=== PATIENT | female | born 1955 | race Caucasian/White ===

== ENCOUNTER 2016-06-12 15:24 | Emergency (ER) | payer MEDICAID ==
[~2016-06-12] VITALS: Ht 152.4 cm; Wt 87.0 kg
[~2016-06-12 15:24] MED LIST: ASPI-1035 PO; DEX4 PO; IOHEXOL-300 100 ML BOTTLE ONE; LEVVL SUBCUT; LIP40 PO; LISI10TA5 PO; METF500T; PHEN100C4 PO; SODIUM CHLORIDE 0.9% 10ML VIAL ONE
[2016-06-12] MEDS ORDERED: MORPHINE SULFATE 4 MG/ML CPJ (NOT FOR IM USE) IV STA (15:55)
[2016-06-12] MEDS ORDERED: ONDANSETRON HCL 4MG/2ML VIAL IV STA (15:55)
[2016-06-12 16:20] LABS: BASOPHILS % 0.1 % (0.0-2.0); HEMATOCRIT. 40.1 % (36.0-48.0); HEMOGLOBIN. 13.5 g/dL (12.0-16.0); LYMPHOCYTES % 15.3 % (20.0-50.0); MEAN CORPUSCULAR HEMOGLOBIN 30.7 pg (28.0-32.0); MEAN CORPUSCULAR HGB CONC 33.8 g/dL (31.0-37.0); MEAN CORPUSCULAR VOLUME 90.7 fL (81.0-99.0); MEAN PLATELET VOLUME 8.5 fl (7.4-10.4); MONOCYTES % 5.2 % (2.0-8.0); NEUTROPHILS % 79.4 % (40.0-76.0); PLATELET 228 x1000/uL (130-400); RED BLOOD CELL COUNT 4.42 mill/uL (4.2-5.4); RED CELL DISTRIBUTION WIDTH 13.3 % (11.6-14.6); WHITE BLOOD COUNT 11.9 x1000/uL (4.5-11.0)
[2016-06-12 16:30] LABS: ALANINE AMINOTRANSFERASE 66 IU/L (13-61); ALBUMIN 3.1 g/dL (3.4-5.0); ANION GAP 20; CALCIUM 8.3 mg/dL (8.5-10.1); CARBON DIOXIDE 23 mEq/L (21-32); CHLORIDE 98 mEq/L (98-107); INDEX HEMOLYSI 2 (1-3); INDEX ICTERIC 1 (1-4); INDEX LIPEMIC 1 (1-3); NT PRO B-TYPE NATRIURETIC PEP 265 pg/mL (5-125); TROPONIN I < 0.02 ng/mL (0.00-0.04); UREA NITROGEN BLOOD 25 mg/dL (7-21); eGFR > 60 mL/min (>60)
[2016-06-12 16:30] LABS: CLARITY URINE CLEAR (CLEAR); COLOR URINE YELLOW (YELLOW); GLUCOSE URINE 3+ (NEGATIVE); KETONES URINE TRACE (NEGATIVE); LEUKOCYTE ESTERASE URINE NEGATIVE (NEGATIVE); NITRITE URINE NEGATIVE (NEGATIVE); OCCULT BLOOD URINE NEGATIVE (NEGATIVE); PROTEIN URINE NEGATIVE (NEGATIVE); SPECIFIC GRAVITY URINE 1.031 (1.005-1.030)
[2016-06-12] MEDS ORDERED: INSULIN REGULAR (HUMULIN R) 300UNITS/3ML IV ONE (16:45)
[2016-06-12 17:06] LABS: BACTERIA URINE 1+; RBC URINE NONE SEEN /hpf (0-2); SQUAMOUS EPITHELIAL CELL URINE FEW /lpf (RARE/1+); WBC URINE 0-2 /hpf (0-2)
[2016-06-12] MEDS ORDERED: POLYETHYLENE GLYCOL 3350 (17GM) 1 DOSE PACK PO ONE (18:30)
[2016-06-12] MEDS ORDERED: INSULIN REGULAR (HUMULIN R) 300UNITS/3ML IV NR (21:26)
[2016-06-12 22:23] VITALS: BP 146/63
== END 2016-06-12 22:26 | disposition home or self-care (01) ==
LOC: ER 15:24
DX: R10.11 Right upper quadrant pain (principal); R06.02 Shortness of breath; M79.89 Other specified soft tissue disorders; E11.65 Type 2 diabetes mellitus with hyperglycemia; I10 Essential (primary) hypertension; Z90.49 Acquired absence of other specified parts of digestive tract; Z79.4 Long term (current) use of insulin; Z79.82 Long term (current) use of aspirin; Z98.890 Other specified postprocedural states
CPT/HCPCS: 36415; 71010; 74177; 80053; 81001; 82962; 83690; 83880; 84484; 85025; 85379; 85610; 93005; 96374; 96375; 99285; A4216; J1815; J2270; J2405; Q9967; Z7610

== ENCOUNTER 2016-08-16 14:43 | Inpatient (IN) | payer MEDICAID ==
[~2016-08-16] VITALS: Ht 180.3 cm; Wt 95.3 kg
[~2016-08-16 14:43] MED LIST changes: -ASPI-1035 PO; +ASPI-1159 PO; -IOHEXOL-300 100 ML BOTTLE ONE; -SODIUM CHLORIDE 0.9% 10ML VIAL ONE
[2016-08-16 18:11] LABS: BASOPHILS % 1.2 % (0.0-2.0); HEMATOCRIT. 40.5 % (36.0-48.0); HEMOGLOBIN. 14.1 g/dL (12.0-16.0); LYMPHOCYTES % 34.1 % (20.0-50.0); MEAN CORPUSCULAR HEMOGLOBIN 30.8 pg (28.0-32.0); MEAN CORPUSCULAR VOLUME 88.3 fL (81.0-99.0); MEAN PLATELET VOLUME 8.2 fl (7.4-10.4); MONOCYTES % 4.7 % (2.0-8.0); PLATELET 310 x1000/uL (130-400); RED BLOOD CELL COUNT 4.59 mill/uL (4.2-5.4); RED CELL DISTRIBUTION WIDTH 13.2 % (11.6-14.6)
[2016-08-16 18:26] LABS: CARBON DIOXIDE 27 mEq/L (21-32); CHLORIDE 100 mEq/L (98-107)
[2016-08-16] MEDS ORDERED: ONDANSETRON HCL 4MG/2ML VIAL IV ONE (18:30)
[2016-08-16] MEDS ORDERED: MORPHINE SULFATE 2 MG/ML CPJ (NOT FOR IM USE) IV ONE (20:15)
[2016-08-16] MEDS ORDERED: SODIUM CHLORIDE 0.9% 1,000 ML IV ONE (21:15)
[2016-08-17] VITALS (7 sets, daily range): BP systolic 122–161; BP diastolic 63–83
[2016-08-17] MEDS ORDERED: HYDROCODONE/ACETAMINOPHEN 5/325MG TABLET PO PRN (00:45)
[2016-08-17] MEDS ORDERED: IPRATROPIUM/ALBUTEROL 0.5-3(2.5)MG/3ML NEB INH PRN (00:45)
[2016-08-17] MEDS ORDERED: ACETAMINOPHEN 325MG TABLET PO PRN (00:45)
[2016-08-17] MEDS ORDERED: ONDANSETRON HCL 4MG/2ML VIAL IV PRN (00:45)
[2016-08-17] MEDS ORDERED: MAGNESIUM/ALUMINUM HYDROXIDE/SIMETHICONE 30ML UDC PO PRN (00:45)
[2016-08-17] MEDS ORDERED: DOCUSATE SODIUM 100MG CAPSULE PO PRN ×2 (00:45→09:00)
[2016-08-17] MEDS ORDERED: CLONIDINE 0.1MG TABLET PO PRN (00:45)
[2016-08-17 03:20] LABS: CLARITY URINE CLEAR (CLEAR); COLOR URINE YELLOW (YELLOW); GLUCOSE URINE 3+ (NEGATIVE); KETONES URINE TRACE (NEGATIVE); LEUKOCYTE ESTERASE URINE NEGATIVE (NEGATIVE); NITRITE URINE POSITIVE (NEGATIVE); OCCULT BLOOD URINE NEGATIVE (NEGATIVE); PROTEIN URINE NEGATIVE (NEGATIVE); SPECIFIC GRAVITY URINE 1.033 (1.005-1.030); UROBILINOGEN URINE 0.2 E.U./dL (0.2-1.0)
[2016-08-17 03:33] LABS: *AMPHETAMINES SCREEN URINE NEGATIVE (NEGATIVE); *BARBITURATES SCREEN URINE NEGATIVE (NEGATIVE); *BENZODIAZEPINES SCREEN URINE NEGATIVE (NEGATIVE); *COCAINE SCREEN URINE NEGATIVE (NEGATIVE); CANNABINOID URINE SCREEN NEGATIVE (NEGATIVE); METHADONE URINE SCREEN NEGATIVE (NEGATIVE); OPIATES URINE SCREEN PRESUMTIVE POSITIVE (NEGATIVE); PHENCYCLIDINE URINE SCREEN NEGATIVE (NEGATIVE)
[2016-08-17] MEDS ORDERED: DEXTROSE 50% WATER 50ML SYRINGE IV PRN (04:45)
[2016-08-17] MEDS ORDERED: BENA20TA3 PO (04:52)
[2016-08-17] MEDS ORDERED: OMEP20CA10 PO (04:52)
[2016-08-17] MEDS ORDERED: DOCU-138 PO (04:54)
[2016-08-17] MEDS ORDERED: BENA5TAB3 PO (05:18)
[2016-08-17] MEDS ORDERED: MULT1TAB63 PO (06:03)
[2016-08-17] MEDS ORDERED: LEVVL SQ (06:03)
[2016-08-17] MEDS: BLOOD SUGAR DIAGNOSTIC STRIP TEST SCH ×4 (06:22→20:24)
[2016-08-17] MEDS: OMEPRAZOLE 20MG CAPSULE EXTENDED RELEASE PO SCH (06:28)
[2016-08-17 07:54] LABS: CHLORIDE 104 mEq/L (98-107)
[2016-08-17] MEDS ORDERED: MAGNESIUM 2 G PREMIX 50 ML IV NR (08:00)
[2016-08-17 08:13] LABS: CARBON DIOXIDE 25 mEq/L (21-32); CREATINE KINASE 49 IU/L (26-192); CREATINE KINASE MB FRACTION < 0.5 ng/mL (0.5-3.6); TROPONIN I < 0.02 ng/mL (0.00-0.04)
[2016-08-17] MEDS: METFORMIN HCL 500MG TABLET PO SCH ×2 (09:07→17:53)
[2016-08-17] MEDS: BENAZEPRIL 5MG TABLET PO SCH ×2 (09:08→20:24)
[2016-08-17] MEDS: ASPIRIN 81MG EC TABLET PO SCH (09:08)
[2016-08-17] MEDS: INSULIN LISPRO 100 UNITS/ML SUBCUT SCH ×5 (09:12→20:36)
[2016-08-17] MEDS: INSULIN DETEMIR UD 100 UNITS/ML SYR SUBCUT SCH ×2 (10:36→22:23)
[2016-08-17 16:02] LABS: CREATINE KINASE 48 IU/L (26-192); CREATINE KINASE MB FRACTION 0.6 ng/mL (0.5-3.6); TROPONIN I < 0.02 ng/mL (0.00-0.04)
[2016-08-17] MEDS ORDERED: MECLIZINE 25MG TABLET PO NR (18:51)
[2016-08-17] MEDS: ATORVASTATIN CALCIUM 40MG TABLET PO SCH (20:23)
[2016-08-17] MEDS: LEVOFLOXACIN 500MG PREMIX 100 ML IV SCH (20:24)
[2016-08-18] VITALS: BP 129/72
[2016-08-18 03:24] VITALS: BP 141/76
[2016-08-18] MEDS: OMEPRAZOLE 20MG CAPSULE EXTENDED RELEASE PO SCH (06:20)
[2016-08-18] MEDS: BLOOD SUGAR DIAGNOSTIC STRIP TEST SCH ×4 (06:20→20:45)
[2016-08-18 06:25] LABS: BASOPHILS % 0.5 % (0.0-2.0); EOSINOPHILS % 2.6 % (0.0-5.0); HEMATOCRIT. 37.1 % (36.0-48.0); HEMOGLOBIN. 12.9 g/dL (12.0-16.0); LYMPHOCYTES % 39.9 % (20.0-50.0); MEAN CORPUSCULAR HEMOGLOBIN 30.9 pg (28.0-32.0); MEAN PLATELET VOLUME 8.6 fl (7.4-10.4); MONOCYTES % 6.5 % (2.0-8.0); NEUTROPHILS % 50.5 % (40.0-76.0); PLATELET 275 x1000/uL (130-400); RED BLOOD CELL COUNT 4.18 mill/uL (4.2-5.4); RED CELL DISTRIBUTION WIDTH 12.9 % (11.6-14.6)
[2016-08-18 07:17] LABS: CARBON DIOXIDE 24 mEq/L (21-32); CHLORIDE 102 mEq/L (98-107)
[2016-08-18] MEDS: METFORMIN HCL 500MG TABLET PO SCH ×2 (08:07→18:11)
[2016-08-18] MEDS: ASPIRIN 81MG EC TABLET PO SCH (08:08)
[2016-08-18] MEDS: BENAZEPRIL 5MG TABLET PO SCH ×2 (08:08→20:42)
[2016-08-18] MEDS: INSULIN LISPRO 100 UNITS/ML SUBCUT SCH ×4 (08:09→20:43)
[2016-08-18 08:28] VITALS: BP 129/84
[2016-08-18] MEDS: INSULIN DETEMIR UD 100 UNITS/ML SYR SUBCUT SCH ×2 (10:02→21:12)
[2016-08-18 12:00] VITALS: BP_SYST 113; BP_SYST 133; BP_SYST 139; BP_DIAS 65; BP_DIAS 75; BP_DIAS 78
[2016-08-18 17:42] VITALS: BP 129/72
[2016-08-18 20:26] VITALS: BP_SYST 127; BP_SYST 128; BP_SYST 130; BP_DIAS 65; BP_DIAS 69; BP_DIAS 70
[2016-08-18] MEDS: ATORVASTATIN CALCIUM 40MG TABLET PO SCH (20:42)
[2016-08-18] MEDS: LEVOFLOXACIN 500MG PREMIX 100 ML IV SCH (20:43)
[2016-08-19] VITALS: BP 130/81
[2016-08-19 04:00] VITALS: BP 136/63
[2016-08-19] MEDS: OMEPRAZOLE 20MG CAPSULE EXTENDED RELEASE PO SCH (06:13)
[2016-08-19] MEDS: BLOOD SUGAR DIAGNOSTIC STRIP TEST SCH ×2 (06:20→12:47)
[2016-08-19 08:12] VITALS: BP 166/89
[2016-08-19] MEDS: METFORMIN HCL 500MG TABLET PO SCH (08:38)
[2016-08-19] MEDS: ASPIRIN 81MG EC TABLET PO SCH (08:38)
[2016-08-19] MEDS: BENAZEPRIL 5MG TABLET PO SCH (08:38)
[2016-08-19] MEDS: INSULIN LISPRO 100 UNITS/ML SUBCUT SCH (08:42)
[2016-08-19] MEDS: INSULIN DETEMIR UD 100 UNITS/ML SYR SUBCUT SCH (10:17)
[2016-08-19] MEDS ORDERED: INSULIN LISPRO 100 UNITS/ML SUBCUT SCH (12:50)
[2016-08-19 13:58] VITALS: BP 142/77
== END 2016-08-19 15:30 | disposition home health service (06) | DRG 44 ==
LOC: ER 19:24 → 6WST 21:47 → ENRESERV 08-17 02:38
PROVIDERS: ADMIT Internal Medicine; ATTEND Internal Medicine
DX: I60.9 Nontraumatic subarachnoid hemorrhage, unspecified (principal); E86.0 Dehydration; E11.65 Type 2 diabetes mellitus with hyperglycemia; H81.10 Benign paroxysmal vertigo, unspecified ear; I10 Essential (primary) hypertension; N39.0 Urinary tract infection, site not specified; D64.9 Anemia, unspecified; E78.5 Hyperlipidemia, unspecified; E66.01 Morbid (severe) obesity due to excess calories; Z79.4 Long term (current) use of insulin; Z79.84 Long term (current) use of oral hypoglycemic drugs; Z79.899 Other long term (current) drug therapy; Z98.890 Other specified postprocedural states; Z86.011 Personal history of benign neoplasm of the brain; Z79.82 Long term (current) use of aspirin; Z90.49 Acquired absence of other specified parts of digestive tract; Z98.891 History of uterine scar from previous surgery; Z68.29 Body mass index [BMI] 29.0-29.9, adult
CPT/HCPCS: 36415; 70450; 70551; 71010; 76770; 80048; 80053; 80305; 81001; 82550; 82553; 82962; 83735; 84484; 85025; 85610; 93005; 93970; 96361; 96374; 96375; 97163; 97166; 97535; 99285; C1893; J1815; J1956; J2270; J2405; J3475; J7030; J7040; J7620; J8597

== ENCOUNTER 2016-12-03 17:22 | Inpatient (IN) | payer MEDICAID ==
[~2016-12-03] VITALS: Ht 149.9 cm; Wt 90.7 kg
[~2016-12-03 17:22] MED LIST changes: +BENA5TAB3 PO; -DEX4 PO; +DOCU-138 PO; +LEVVL SQ; -LISI10TA5 PO; -METF500T; +METF500T PO; +MULT1TAB63 PO; +OMEP20CA10 PO; -PHEN100C4 PO
[2016-12-03] MEDS ORDERED: ONDANSETRON HCL 4MG/2ML VIAL IV STA (18:16)
[2016-12-03] MEDS ORDERED: MORPHINE SULFATE 10 MG/ML CPJ IV ONE ×2 (18:30→20:30)
[2016-12-03] MEDS ORDERED: KETOROLAC 15MG/ML VIAL IV ONE (18:30)
[2016-12-03 18:57] LABS: CLARITY URINE CLEAR (CLEAR); COLOR URINE YELLOW (YELLOW); GLUCOSE URINE 3+ (NEGATIVE); KETONES URINE NEGATIVE (NEGATIVE); LEUKOCYTE ESTERASE URINE NEGATIVE (NEGATIVE); NITRITE URINE POSITIVE (NEGATIVE); OCCULT BLOOD URINE NEGATIVE (NEGATIVE); PH URINE 6.5 (4.5-8.0); PROTEIN URINE NEGATIVE (NEGATIVE); SPECIFIC GRAVITY URINE 1.028 (1.005-1.030); UROBILINOGEN URINE 0.2 E.U./dL (0.2-1.0)
[2016-12-03 19:25] LABS: D-DIMER 0.36 mg/L FEU (<0.50); PARTIAL THROMBOPLASTIN TIME 25.7 sec (23.4-31.0); PROTHROMBIN TIME 10.3 sec (9.4-11.6)
[2016-12-03 19:27] LABS: BASOPHILS % 0.5 % (0.0-2.0); EOSINOPHILS % 2.6 % (0.0-5.0); HEMATOCRIT. 40.2 % (36.0-48.0); HEMOGLOBIN. 13.7 g/dL (12.0-16.0); LYMPHOCYTES % 35.1 % (20.0-50.0); MEAN CORPUSCULAR HEMOGLOBIN 29.5 pg (28.0-32.0); MEAN CORPUSCULAR VOLUME 86.7 fL (81.0-99.0); MEAN PLATELET VOLUME 9.1 fl (7.4-10.4); MONOCYTES % 5.9 % (2.0-8.0); NEUTROPHILS % 55.9 % (40.0-76.0); PLATELET 259 x1000/uL (130-400); RED BLOOD CELL COUNT 4.63 mill/uL (4.2-5.4); RED CELL DISTRIBUTION WIDTH 13.2 % (11.6-14.6)
[2016-12-03 19:30] LABS: CARBON DIOXIDE 28 mEq/L (21-32); CHLORIDE 101 mEq/L (98-107); TROPONIN I < 0.02 ng/mL (0.00-0.04)
[2016-12-03] MEDS ORDERED: CEFTRIAXONE 1 G PREMIX 50 ML IV ONE (20:00)
[2016-12-03] MEDS ORDERED: ASPIRIN 325MG EC TABLET PO ONE (20:15)
[2016-12-03] MEDS ORDERED: ONDANSETRON HCL 4MG/2ML VIAL IV ONE (20:30)
[2016-12-03] MEDS ORDERED: INSULIN REGULAR (HUMULIN R) 300UNITS/3ML SUBCUT ONE (23:15)
[2016-12-04] VITALS: BP 149/52
[2016-12-04] MEDS ORDERED: GLYB5TAB7 PO (01:21)
[2016-12-04] MEDS ORDERED: LISI10TA5 PO (01:21)
[2016-12-04 04:00] VITALS: BP 167/83
[2016-12-04] MEDS ORDERED: HYDROCODONE/ACETAMINOPHEN 5/325MG TABLET PO PRN (04:30)
[2016-12-04] MEDS ORDERED: DEXTROSE 50% WATER 50ML SYRINGE IV PRN ×2 (04:30→10:45)
[2016-12-04] MEDS: BLOOD SUGAR DIAGNOSTIC STRIP TEST SCH ×4 (06:48→20:51)
[2016-12-04] MEDS ORDERED: INSULIN LISPRO 100 UNITS/ML SUBCUT SCH (07:15)
[2016-12-04 08:00] VITALS: BP 152/69
[2016-12-04 08:27] LABS: BASOPHILS % 0.5 % (0.0-2.0); EOSINOPHILS % 2.3 % (0.0-5.0); HEMATOCRIT. 39.4 % (36.0-48.0); HEMOGLOBIN. 13.5 g/dL (12.0-16.0); LYMPHOCYTES % 35.6 % (20.0-50.0); MEAN CORPUSCULAR HEMOGLOBIN 29.5 pg (28.0-32.0); MEAN PLATELET VOLUME 8.8 fl (7.4-10.4); MONOCYTES % 6.1 % (2.0-8.0); NEUTROPHILS % 55.5 % (40.0-76.0); PLATELET 247 x1000/uL (130-400); RED BLOOD CELL COUNT 4.58 mill/uL (4.2-5.4); RED CELL DISTRIBUTION WIDTH 13.1 % (11.6-14.6)
[2016-12-04 09:10] LABS: CARBON DIOXIDE 28 mEq/L (21-32); CHLORIDE 102 mEq/L (98-107); CREATINE KINASE 68 IU/L (26-192)
[2016-12-04 09:13] LABS: CREATINE KINASE MB FRACTION 0.6 ng/mL (0.5-3.6); TROPONIN I < 0.02 ng/mL (0.00-0.04)
[2016-12-04] MEDS ORDERED: KETOROLAC 15MG/ML VIAL IV PRN (10:30)
[2016-12-04] MEDS ORDERED: PNEUMOCOCCAL 23-VAL P-SAC VAC 0.5 ML IM ONE (11:00)
[2016-12-04] MEDS ORDERED: BLOOD SUGAR DIAGNOSTIC STRIP TEST SCH (11:45)
[2016-12-04 12:00] VITALS: BP 128/53
[2016-12-04] MEDS: INSULIN LISPRO 100 UNITS/ML SUBCUT SCH ×3 (12:28→21:01)
[2016-12-04] MEDS ORDERED: DOCUSATE SODIUM 100MG CAPSULE PO PRN (13:00)
[2016-12-04] MEDS ORDERED: KETOROLAC 10MG TABLET PO SCH (13:30)
[2016-12-04] MEDS: BISACODYL 5MG TABLET PO PRN (14:56)
[2016-12-04] MEDS: LIDOCAINE 5% PATCH TOP SCH (14:58)
[2016-12-04 16:00] VITALS: BP 126/61
[2016-12-04 16:41] LABS: CREATINE KINASE 69 IU/L (26-192); CREATINE KINASE MB FRACTION 1.1 ng/mL (0.5-3.6); TROPONIN I < 0.02 ng/mL (0.00-0.04)
[2016-12-04] MEDS: GLYBURIDE 5MG TABLET PO SCH (17:01)
[2016-12-04 20:00] VITALS: BP 138/62
[2016-12-04] MEDS ORDERED: CEFTRIAXONE 1 G PREMIX 50 ML IV SCH (20:00)
[2016-12-04] MEDS: LISINOPRIL 10MG TABLET PO SCH (20:49)
[2016-12-04] MEDS ORDERED: ATORVASTATIN CALCIUM 40MG TABLET PO SCH (21:00)
[2016-12-04] MEDS ORDERED: BENAZEPRIL 5MG TABLET PO SCH (21:00)
[2016-12-04] MEDS ORDERED: KETOROLAC 10MG TABLET PO PRN (21:00)
[2016-12-04] MEDS ORDERED: INSULIN DETEMIR UD 100 UNITS/ML SYR SUBCUT PRN (21:00)
[2016-12-04] MEDS: INSULIN DETEMIR UD 100 UNITS/ML SYR SUBCUT SCH (21:01)
[2016-12-05] VITALS: BP 134/64
[2016-12-05 04:00] VITALS: BP 146/86
[2016-12-05 06:14] LABS: CHLORIDE 101 mEq/L (98-107)
[2016-12-05] MEDS: BISACODYL 5MG TABLET PO PRN (06:22)
[2016-12-05] MEDS: BLOOD SUGAR DIAGNOSTIC STRIP TEST SCH ×2 (06:24→12:03)
[2016-12-05 06:37] LABS: BASOPHILS % 1.2 % (0.0-2.0); EOSINOPHILS % 3.9 % (0.0-5.0); HEMOGLOBIN. 13.4 g/dL (12.0-16.0); LYMPHOCYTES % 34.3 % (20.0-50.0); MEAN CORPUSCULAR HEMOGLOBIN 30.1 pg (28.0-32.0); NEUTROPHILS % 54.6 % (40.0-76.0); PLATELET 234 x1000/uL (130-400); RED BLOOD CELL COUNT 4.44 mill/uL (4.2-5.4)
[2016-12-05 06:39] LABS: CARBON DIOXIDE 22 mEq/L (21-32); TROPONIN I < 0.02 ng/mL (0.00-0.04)
[2016-12-05] MEDS: INSULIN LISPRO 100 UNITS/ML SUBCUT SCH ×2 (06:41→12:28)
[2016-12-05 08:00] VITALS: BP 141/62
[2016-12-05] MEDS: GLYBURIDE 5MG TABLET PO SCH (08:35)
[2016-12-05] MEDS: LISINOPRIL 10MG TABLET PO SCH (08:36)
[2016-12-05] MEDS: LIDOCAINE 5% PATCH TOP SCH (08:39)
[2016-12-05] MEDS ORDERED: OMEPRAZOLE 20MG CAPSULE EXTENDED RELEASE PO SCH (09:00)
[2016-12-05] MEDS ORDERED: MULTIVITAMINS,THER W-MINERALS TABLET PO SCH (09:00)
[2016-12-05] MEDS ORDERED: ASPIRIN 81MG EC TABLET PO SCH (09:00)
[2016-12-05] MEDS: INSULIN DETEMIR UD 100 UNITS/ML SYR SUBCUT SCH (10:34)
[2016-12-05 12:00] VITALS: BP 144/60
[2016-12-05 16:00] VITALS: BP 128/55
[2016-12-05 16:30] VITALS: BP 128/65
== END 2016-12-05 17:10 | disposition home or self-care (01) | DRG 203 ==
LOC: ER 17:28 → 5WST 20:15 → EDBEDREQTM 20:19 → EDBEDREQ 20:19 → ENRESERV 21:22
PROVIDERS: ADMIT Internal Medicine; ATTEND Internal Medicine
DX: M94.0 Chondrocostal junction syndrome [Tietze] (principal); I11.0 Hypertensive heart disease with heart failure; I50.9 Heart failure, unspecified; E11.65 Type 2 diabetes mellitus with hyperglycemia; I10 Essential (primary) hypertension; E04.1 Nontoxic single thyroid nodule; E78.00 Pure hypercholesterolemia, unspecified; E78.5 Hyperlipidemia, unspecified; H91.90 Unspecified hearing loss, unspecified ear; S43.402A Unspecified sprain of left shoulder joint, initial encounter; W06.XXXA Fall from bed, initial encounter; Z79.899 Other long term (current) drug therapy; Z79.4 Long term (current) use of insulin; Z86.011 Personal history of benign neoplasm of the brain; Z90.49 Acquired absence of other specified parts of digestive tract; Y93.89 Activity, other specified; Y92.89 Other specified places as the place of occurrence of the external cause; Y99.8 Other external cause status
CPT/HCPCS: 36415; 71010; 71250; 80048; 80053; 80061; 81001; 82550; 82553; 82962; 83036; 83690; 83880; 84443; 84484; 85025; 85379; 85610; 85730; 90732; 93005; 96365; 96372; 96375; 96376; 99285; J0696; J1815; J1885; J2270; J2405; J7050

== ENCOUNTER 2017-06-29 05:33 | Inpatient (IN) | payer MEDICAID ==
[~2017-06-29] VITALS: Ht 144.8 cm; Wt 90.7 kg
[~2017-06-29 05:33] MED LIST changes: +GLYB5TAB7 PO; +LISI10TA5 PO
[2017-06-29] MEDS ORDERED: ONDANSETRON HCL 4MG/2ML VIAL IV STA (07:58)
[2017-06-29] MEDS ORDERED: MORPHINE SULFATE 4 MG/ML CPJ (NOT FOR IM USE) IV STA (07:58)
[2017-06-29] MEDS ORDERED: SODIUM CHLORIDE 0.9% 1,000 ML IV ONE (07:58)
[2017-06-29 08:32] LABS: BASOPHILS % 0.3 % (0.0-2.0); EOSINOPHILS % 0.5 % (0.0-5.0); HEMATOCRIT. 39.9 % (36.0-48.0); HEMOGLOBIN. 13.9 g/dL (12.0-16.0); LYMPHOCYTES % 13.3 % (20.0-50.0); MEAN CORPUSCULAR HEMOGLOBIN 30.4 pg (28.0-32.0); MEAN CORPUSCULAR VOLUME 87.2 fL (81.0-99.0); MEAN PLATELET VOLUME 8.4 fl (7.4-10.4); MONOCYTES % 4.6 % (2.0-8.0); NEUTROPHILS % 81.3 % (40.0-76.0); PLATELET 254 x1000/uL (130-400); RED BLOOD CELL COUNT 4.58 mill/uL (4.2-5.4); RED CELL DISTRIBUTION WIDTH 12.3 % (11.6-14.6)
[2017-06-29 08:33] LABS: CHLORIDE 97 mEq/L (98-107); PROTHROMBIN TIME 10.7 sec (9.4-11.6)
[2017-06-29 09:39] LABS: CLARITY URINE CLEAR (CLEAR); COLOR URINE YELLOW (YELLOW); KETONES URINE 1+ (NEGATIVE); LEUKOCYTE ESTERASE URINE NEGATIVE (NEGATIVE); NITRITE URINE POSITIVE (NEGATIVE); OCCULT BLOOD URINE NEGATIVE (NEGATIVE); PH URINE 5.5 (4.5-8.0); PROTEIN URINE TRACE (NEGATIVE); UROBILINOGEN URINE 0.2 E.U./dL (0.2-1.0)
[2017-06-29] MEDS ORDERED: METRONIDAZOLE 500 MG PREMIX 100 ML IV ONE (12:15)
[2017-06-29] MEDS ORDERED: PIPERACILLIN/TAZ 3.375G PREMIX 50 ML IV ONE (12:15)
[2017-06-29] MEDS ORDERED: DEXTROSE 50% WATER 50ML SYRINGE IV PRN (12:30)
[2017-06-29] MEDS ORDERED: CLONIDINE 0.1MG TABLET PO PRN (12:30)
[2017-06-29] MEDS ORDERED: MORPHINE SULFATE 2 MG/ML CPJ (NOT FOR IM USE) IV PRN (12:30)
[2017-06-29] MEDS ORDERED: ONDANSETRON HCL 4MG/2ML VIAL IV PRN (12:30)
[2017-06-29 16:40] VITALS: BP 152/71
[2017-06-29] MEDS: BLOOD SUGAR DIAGNOSTIC STRIP TEST SCH ×2 (17:18→23:13)
[2017-06-29] MEDS ORDERED: MORPHINE SULFATE 4 MG/ML CPJ (NOT FOR IM USE) IV PRN (17:25)
[2017-06-29] MEDS: METRONIDAZOLE 500MG TABLET PO SCH ×2 (17:33→22:55)
[2017-06-29] MEDS: OMEPRAZOLE 20MG CAPSULE EXTENDED RELEASE PO SCH (17:33)
[2017-06-29] MEDS: ASPIRIN 81MG EC TABLET PO SCH (17:33)
[2017-06-29] MEDS: LISINOPRIL 10MG TABLET PO SCH ×2 (17:33→22:56)
[2017-06-29] MEDS: INSULIN LISPRO 100 UNITS/ML SUBCUT SCH ×2 (17:44→23:53)
[2017-06-29] MEDS: LEVOFLOXACIN 500MG PREMIX 100 ML IV SCH (17:45)
[2017-06-29 20:00] VITALS: BP 128/66
[2017-06-29] MEDS ORDERED: INSULIN GLARGINE UD 100 UNITS/ML SYR SUBCUT SCH (22:00)
[2017-06-29] MEDS: BENAZEPRIL 5MG TABLET PO SCH (22:55)
[2017-06-29] MEDS: ATORVASTATIN CALCIUM 40MG TABLET PO SCH (22:55)
[2017-06-29] MEDS: INSULIN GLARGINE UD 100 UNITS/ML SYR SUBCUT SCH (23:54)
[2017-06-30] VITALS: BP 124/68
[2017-06-30 04:00] VITALS: BP 122/66
[2017-06-30] MEDS: BLOOD SUGAR DIAGNOSTIC STRIP TEST SCH ×4 (06:26→20:55)
[2017-06-30] MEDS: METRONIDAZOLE 500MG TABLET PO SCH ×3 (06:28→21:12)
[2017-06-30 07:01] LABS: BASOPHILS % 0.2 % (0.0-2.0); EOSINOPHILS % 1.4 % (0.0-5.0); HEMATOCRIT. 37.5 % (36.0-48.0); LYMPHOCYTES % 22.2 % (20.0-50.0); MEAN CORPUSCULAR HEMOGLOBIN 30.4 pg (28.0-32.0); MEAN CORPUSCULAR VOLUME 87.9 fL (81.0-99.0); MEAN PLATELET VOLUME 8.6 fl (7.4-10.4); MONOCYTES % 8.2 % (2.0-8.0); PLATELET 227 x1000/uL (130-400); RED BLOOD CELL COUNT 4.26 mill/uL (4.2-5.4); RED CELL DISTRIBUTION WIDTH 12.2 % (11.6-14.6)
[2017-06-30 08:00] VITALS: BP 122/66
[2017-06-30] MEDS: ASPIRIN 81MG EC TABLET PO SCH (08:45)
[2017-06-30] MEDS: BENAZEPRIL 5MG TABLET PO SCH (08:45)
[2017-06-30] MEDS: LISINOPRIL 10MG TABLET PO SCH ×2 (08:46→20:51)
[2017-06-30] MEDS: OMEPRAZOLE 20MG CAPSULE EXTENDED RELEASE PO SCH (08:46)
[2017-06-30] MEDS: INSULIN LISPRO 100 UNITS/ML SUBCUT SCH ×4 (08:50→21:17)
[2017-06-30 09:00] VITALS: BP 108/52
[2017-06-30] MEDS: INSULIN GLARGINE UD 100 UNITS/ML SYR SUBCUT SCH ×2 (10:41→21:17)
[2017-06-30] MEDS: LEVOFLOXACIN 500MG PREMIX 100 ML IV SCH (12:30)
[2017-06-30 16:00] VITALS: BP 121/58
[2017-06-30 20:00] VITALS: BP 108/44
[2017-06-30] MEDS ORDERED: LEVOFLOXACIN 500MG TABLET PO SCH (20:00)
[2017-06-30] MEDS: ATORVASTATIN CALCIUM 40MG TABLET PO SCH (20:51)
[2017-07-01] VITALS: BP 111/57
[2017-07-01 04:00] VITALS: BP 119/50
[2017-07-01] MEDS: METRONIDAZOLE 500MG TABLET PO SCH ×2 (05:57→13:03)
[2017-07-01] MEDS: BLOOD SUGAR DIAGNOSTIC STRIP TEST SCH ×2 (06:21→12:32)
[2017-07-01] MEDS: INSULIN LISPRO 100 UNITS/ML SUBCUT SCH ×4 (06:59→13:06)
[2017-07-01 08:00] VITALS: BP 142/81
[2017-07-01] MEDS: ASPIRIN 81MG EC TABLET PO SCH (09:04)
[2017-07-01] MEDS: OMEPRAZOLE 20MG CAPSULE EXTENDED RELEASE PO SCH (09:04)
[2017-07-01] MEDS: LISINOPRIL 10MG TABLET PO SCH (09:04)
[2017-07-01] MEDS: INSULIN GLARGINE UD 100 UNITS/ML SYR SUBCUT SCH (09:07)
[2017-07-01 12:00] VITALS: BP 137/80
[2017-07-01 15:43] VITALS: BP 137/80
== END 2017-07-01 16:05 | disposition home or self-care (01) | DRG 463 ==
LOC: ER 05:33 → 6EST 12:02 → EDBEDREQTM 12:08 → EDBEDREQ 12:08 → CANRESERV 12:26 → ENRESERV 12:26 → EDBEDREQSVC 13:53 → ENRESERV 14:45
PROVIDERS: ADMIT Internal Medicine; ATTEND Internal Medicine
DX: N39.0 Urinary tract infection, site not specified (principal); E87.1 Hypo-osmolality and hyponatremia; E87.8 Other disorders of electrolyte and fluid balance, not elsewhere classified; E66.01 Morbid (severe) obesity due to excess calories; I10 Essential (primary) hypertension; E11.9 Type 2 diabetes mellitus without complications; E78.00 Pure hypercholesterolemia, unspecified; R19.7 Diarrhea, unspecified; E78.5 Hyperlipidemia, unspecified; Z90.49 Acquired absence of other specified parts of digestive tract; Z98.891 History of uterine scar from previous surgery; Z68.41 Body mass index [BMI] 40.0-44.9, adult; Z79.4 Long term (current) use of insulin; Z79.82 Long term (current) use of aspirin; Z79.84 Long term (current) use of oral hypoglycemic drugs; Z88.6 Allergy status to analgesic agent; Z88.8 Allergy status to other drugs, medicaments and biological substances
CPT/HCPCS: 36415; 71045; 74176; 80053; 81003; 82962; 83605; 83690; 83880; 84484; 85025; 85610; 87015; 87040; 87045; 87077; 87086; 87186; 87427; 87449; 87493; 93005; 96365; 96375; 99285; C1893; J1815; J1956; J2270; J2405; J2543; J3490; J7030

== ENCOUNTER 2019-09-30 15:48 | Emergency (ER) | payer MEDICARE, MEDICAID ==
[~2019-09-30] VITALS: Ht 152.4 cm; Wt 91.0 kg
[~2019-09-30 15:48] MED LIST changes: -ASPI-1159 PO; +ASPI-1497 PO; -BENA5TAB3 PO; +BENA5TAB6 PO; -OMEP20CA10 PO; +OMEP20CA14 PO
[2019-09-30 15:51] VITALS: BP 205/85
[2019-09-30] MEDS ORDERED: ACETAMINOPHEN 325MG TABLET PO ONE (17:15)
== END 2019-09-30 18:28 | disposition home or self-care (01) ==
LOC: ER 16:02
DX: S50.11XA Contusion of right forearm, initial encounter (principal); E11.9 Type 2 diabetes mellitus without complications; I10 Essential (primary) hypertension; E78.00 Pure hypercholesterolemia, unspecified; W10.9XXA Fall (on) (from) unspecified stairs and steps, initial encounter; Y93.01 Activity, walking, marching and hiking; Z88.6 Allergy status to analgesic agent; Y92.9 Unspecified place or not applicable; Z79.4 Long term (current) use of insulin; Z79.82 Long term (current) use of aspirin; Z90.49 Acquired absence of other specified parts of digestive tract; Z98.890 Other specified postprocedural states
CPT/HCPCS: 29280; 73090; 73590; 93005; 99284

== ENCOUNTER 2020-05-30 15:49 | Emergency (ER) | payer OTHER, MEDICAID ==
[~2020-05-30] VITALS: Ht 160 cm; Wt 67.0 kg
[~2020-05-30 15:49] MED LIST changes: +LISI10TA26 PO; -LISI10TA5 PO
[2020-05-30] MEDS ORDERED: FENTANYL CITRATE/PF 50MCG/ML 2ML VIAL IM ONE (16:30)
[2020-05-30] MEDS ORDERED: ONDANSETRON 4MG ODT PO ONE (16:30)
[2020-05-30 17:16] VITALS: BP 155/64
[2020-05-30] MEDS ORDERED: IBUP-2029 MT (17:52)
== END 2020-05-30 18:26 | disposition home or self-care (01) ==
LOC: ER 15:49
DX: M54.5 Low back pain (principal); M25.561 Pain in right knee; M25.532 Pain in left wrist; E11.9 Type 2 diabetes mellitus without complications; Z88.5 Allergy status to narcotic agent; Z88.6 Allergy status to analgesic agent; Z79.899 Other long term (current) drug therapy; Z79.82 Long term (current) use of aspirin; Z79.4 Long term (current) use of insulin
CPT/HCPCS: 72131; 73110; 73562; 73590; 73610; 96372; 99284; J3010; Q0162

== ENCOUNTER 2020-09-28 18:01 | Inpatient (IN) | payer OTHER ==
[~2020-09-28] VITALS: Ht 149.9 cm; Wt 87.5 kg
[~2020-09-28 18:01] MED LIST changes: +IBUP-2029 MT
[2020-09-28] MEDS ORDERED: ONDANSETRON HCL 4MG/2ML INJ IV STA ×2 (20:37→22:30)
[2020-09-28] MEDS ORDERED: SODIUM CHLORIDE 0.9% 1,000 ML IV ONE (20:45)
[2020-09-28] MEDS ORDERED: MORPHINE SULFATE 4 MG/ML CPJ (NOT FOR IM USE) IV STA (22:30)
[2020-09-28 22:33] LABS: BASOPHILS % 0.4 % (0.0-2.0); EOSINOPHILS % 2.5 % (0.0-5.0); HEMATOCRIT. 39.2 % (36.0-48.0); HEMOGLOBIN. 13.4 g/dL (12.0-16.0); LYMPHOCYTES % 31.2 % (20.0-50.0); MEAN CORPUSCULAR HEMOGLOBIN 30.6 pg (28.0-32.0); MEAN CORPUSCULAR VOLUME 89.2 fL (81.0-99.0); MEAN PLATELET VOLUME 7.8 fl (7.4-10.4); MONOCYTES % 7.5 % (2.0-8.0); NEUTROPHILS % 58.4 % (40.0-76.0); PLATELET 310 x1000/uL (130-400); RED CELL DISTRIBUTION WIDTH 12.3 % (11.6-14.6)
[2020-09-28 22:44] LABS: CHLORIDE 103 mEq/L (98-107)
[2020-09-29 03:23] LABS: CLARITY URINE CLOUDY (CLEAR); COLOR URINE YELLOW (YELLOW); KETONES URINE TRACE (NEGATIVE); LEUKOCYTE ESTERASE URINE 2+ (NEGATIVE); NITRITE URINE POSITIVE (NEGATIVE); OCCULT BLOOD URINE 1+ (NEGATIVE); PROTEIN URINE 2+ (NEGATIVE); SPECIFIC GRAVITY URINE 1.014 (1.005-1.030); UROBILINOGEN URINE 0.2 E.U./dL (0.2-1.0)
[2020-09-29 11:45] VITALS: BP 129/79
[2020-09-29] MEDS ORDERED: IPRATROPIUM/ALBUTEROL 0.5-3(2.5)MG/3ML NEB HHN PRN (11:45)
[2020-09-29] MEDS ORDERED: ONDANSETRON HCL 4MG/2ML INJ IV PRN (11:45)
[2020-09-29] MEDS ORDERED: LORAZEPAM 0.5MG TABLET PO PRN (11:45)
[2020-09-29] MEDS ORDERED: HYDROCODONE/ACETAMINOPHEN 5/325MG TABLET PO PRN (11:45)
[2020-09-29] MEDS ORDERED: CEFTRIAXONE 1 G PREMIX 50 ML IV SCH (11:45)
[2020-09-29] MEDS ORDERED: ACETAMINOPHEN 325MG TABLET PO PRN ×2 (11:45)
[2020-09-29] MEDS ORDERED: CLONIDINE 0.1MG TABLET PO PRN (11:45)
[2020-09-29] MEDS ORDERED: DOCUSATE SODIUM 100MG CAPSULE PO PRN (11:45)
[2020-09-29 12:00] VITALS: BP 129/79
[2020-09-29] MEDS: CEFTRIAXONE 1,000 MG in DEXTROSE 5% WATER 50 ML IV SCH (13:13)
[2020-09-29] MEDS ORDERED: DEXTROSE 50% WATER 50ML SYRINGE IV PRN (15:15)
[2020-09-29] MEDS ORDERED: NALOXONE HCL 0.4MG/ML VIAL IV PRN (15:30)
[2020-09-29 16:00] VITALS: BP 139/63
[2020-09-29] MEDS: INSULIN LISPRO 100 UNITS/ML SUBCUT SCH ×2 (17:18→22:02)
[2020-09-29] MEDS: BLOOD SUGAR DIAGNOSTIC STRIP TEST SCH ×2 (17:18→21:48)
[2020-09-29] MEDS: METOCLOPRAMIDE HCL 10MG/2ML VIAL IV SCH ×2 (17:19→23:59)
[2020-09-29] MEDS: BENAZEPRIL 5MG TABLET PO SCH (17:20)
[2020-09-29] MEDS: OMEPRAZOLE 20MG CAPSULE EXTENDED RELEASE PO SCH (17:20)
[2020-09-29 20:00] VITALS: BP 127/57
[2020-09-29] MEDS: INSULIN GLARGINE UD 100 UNITS/ML SYR SUBCUT SCH (22:02)
[2020-09-29] MEDS: ATORVASTATIN CALCIUM 40MG TABLET PO SCH (22:03)
[2020-09-30] VITALS: BP 130/61
[2020-09-30 04:00] VITALS: BP 128/58
[2020-09-30 05:40] LABS: BASOPHILS % 0.6 % (0.0-2.0); EOSINOPHILS % 3.1 % (0.0-5.0); HEMATOCRIT. 37.5 % (36.0-48.0); HEMOGLOBIN. 12.8 g/dL (12.0-16.0); LYMPHOCYTES % 33.2 % (20.0-50.0); MEAN CORPUSCULAR HEMOGLOBIN 30.4 pg (28.0-32.0); MEAN CORPUSCULAR VOLUME 88.6 fL (81.0-99.0); MEAN PLATELET VOLUME 8.1 fl (7.4-10.4); MONOCYTES % 8.2 % (2.0-8.0); NEUTROPHILS % 54.9 % (40.0-76.0); PLATELET 326 x1000/uL (130-400); RED BLOOD CELL COUNT 4.23 mill/uL (4.2-5.4); RED CELL DISTRIBUTION WIDTH 12.1 % (11.6-14.6)
[2020-09-30 06:41] LABS: CHLORIDE 104 mEq/L (98-107)
[2020-09-30] MEDS: METOCLOPRAMIDE HCL 10MG/2ML VIAL IV SCH ×4 (06:44→23:29)
[2020-09-30] MEDS: BLOOD SUGAR DIAGNOSTIC STRIP TEST SCH ×4 (06:47→20:29)
[2020-09-30 08:00] VITALS: BP 110/98
[2020-09-30] MEDS: BENAZEPRIL 5MG TABLET PO SCH ×2 (09:35→17:47)
[2020-09-30] MEDS: ASPIRIN 81MG EC TABLET PO SCH (09:35)
[2020-09-30] MEDS: OMEPRAZOLE 20MG CAPSULE EXTENDED RELEASE PO SCH (09:35)
[2020-09-30] MEDS: INSULIN LISPRO 100 UNITS/ML SUBCUT SCH ×4 (09:38→20:28)
[2020-09-30 12:00] VITALS: BP 121/97
[2020-09-30] MEDS: CEFTRIAXONE 1,000 MG in DEXTROSE 5% WATER 50 ML IV SCH (13:34)
[2020-09-30 16:00] VITALS: BP 157/56
[2020-09-30] MEDS: ATORVASTATIN CALCIUM 40MG TABLET PO SCH (20:25)
[2020-09-30 21:11] VITALS: BP 155/68
[2020-09-30] MEDS: INSULIN GLARGINE UD 100 UNITS/ML SYR SUBCUT SCH (22:02)
[2020-10-01 00:16] VITALS: BP 141/57
[2020-10-01] MEDS: METOCLOPRAMIDE HCL 10MG/2ML VIAL IV SCH ×2 (06:36→13:18)
[2020-10-01] MEDS: BLOOD SUGAR DIAGNOSTIC STRIP TEST SCH ×2 (06:36→13:13)
[2020-10-01 06:44] LABS: BASOPHILS % 0.6 % (0.0-2.0); EOSINOPHILS % 3.8 % (0.0-5.0); HEMATOCRIT. 36.3 % (36.0-48.0); HEMOGLOBIN. 12.4 g/dL (12.0-16.0); LYMPHOCYTES % 36.6 % (20.0-50.0); MEAN CORPUSCULAR HEMOGLOBIN 30.1 pg (28.0-32.0); MEAN CORPUSCULAR VOLUME 88.4 fL (81.0-99.0); MONOCYTES % 8.7 % (2.0-8.0); NEUTROPHILS % 50.3 % (40.0-76.0); PLATELET 338 x1000/uL (130-400); RED CELL DISTRIBUTION WIDTH 12.1 % (11.6-14.6)
[2020-10-01 07:02] LABS: CHLORIDE 104 mEq/L (98-107)
[2020-10-01 08:00] VITALS: BP 163/64
[2020-10-01] MEDS: ASPIRIN 81MG EC TABLET PO SCH (09:37)
[2020-10-01] MEDS: BENAZEPRIL 5MG TABLET PO SCH (09:37)
[2020-10-01] MEDS: OMEPRAZOLE 20MG CAPSULE EXTENDED RELEASE PO SCH (09:37)
[2020-10-01] MEDS: INSULIN LISPRO 100 UNITS/ML SUBCUT SCH ×2 (09:41→13:28)
[2020-10-01 12:00] VITALS: BP 132/59
[2020-10-01] MEDS: CEFTRIAXONE 1,000 MG in DEXTROSE 5% WATER 50 ML IV SCH (13:18)
[2020-10-01] MEDS ORDERED: NITR100C MT (14:24)
[2020-10-01 15:47] VITALS: BP 121/68
[2020-10-01 16:00] VITALS: BP 125/62
== END 2020-10-01 17:15 | disposition home or self-care (01) | DRG 74 ==
LOC: ER 18:01 → MICUSO 09-29 03:54 → 6EST 09-29 08:52
PROVIDERS: ADMIT Internal Medicine; ATTEND Internal Medicine
DX: E11.43 Type 2 diabetes mellitus with diabetic autonomic (poly)neuropathy (principal); N39.0 Urinary tract infection, site not specified; I16.1 Hypertensive emergency; K90.49 Malabsorption due to intolerance, not elsewhere classified; K31.84 Gastroparesis; E11.65 Type 2 diabetes mellitus with hyperglycemia; E78.5 Hyperlipidemia, unspecified; E66.01 Morbid (severe) obesity due to excess calories; R80.9 Proteinuria, unspecified; I10 Essential (primary) hypertension; Z79.4 Long term (current) use of insulin; Z90.49 Acquired absence of other specified parts of digestive tract; Z86.011 Personal history of benign neoplasm of the brain; Z88.6 Allergy status to analgesic agent; Z68.39 Body mass index [BMI] 39.0-39.9, adult; Z79.899 Other long term (current) drug therapy; Z79.82 Long term (current) use of aspirin
CPT/HCPCS: 36415; 71045; 74176; 80048; 80053; 80061; 81003; 82962; 83036; 84484; 85025; 87077; 87186; 93005; 99285; J0696; J1815; J2270; J2405; J2765; J7030; J7060

== ENCOUNTER 2021-12-12 15:11 | Emergency (ER) | payer MEDICAID, MEDICARE, OTHER ==
[~2021-12-12] VITALS: Ht 149.9 cm; Wt 98.0 kg
[~2021-12-12 15:11] MED LIST changes: +BENA5TAB40 PO; -BENA5TAB6 PO; +MULT-624 PO; -MULT1TAB63 PO; +NITR100C MT
[2021-12-12] MEDS ORDERED: KETOROLAC 15MG/ML VIAL IM ONE (18:45)
[2021-12-12 19:56] VITALS: BP 112/64
== END 2021-12-12 19:59 | disposition home or self-care (01) ==
LOC: ER 15:11
DX: R51.9 Headache, unspecified (principal); E78.00 Pure hypercholesterolemia, unspecified; E11.9 Type 2 diabetes mellitus without complications; I10 Essential (primary) hypertension; W18.2XXA Fall in (into) shower or empty bathtub, initial encounter; Y93.89 Activity, other specified; Y92.9 Unspecified place or not applicable; Z79.4 Long term (current) use of insulin; Z88.6 Allergy status to analgesic agent; Z79.82 Long term (current) use of aspirin; Z98.890 Other specified postprocedural states
CPT/HCPCS: 70450; 72125; 73030; 96372; 99284; J1885

== ENCOUNTER 2023-05-14 15:32 | Emergency (ER) | payer OTHER, MEDICAID ==
[~2023-05-14] VITALS: Ht 149.9 cm; Wt 90.7 kg
[~2023-05-14 15:32] MED LIST changes: +BESI5DRO RIGHTEYE; +BROM3DRO RIGHTEYE; +CIPR-263 MT; +INSU100I24 SQ; +OCUFLX RIGHTEYE
[2023-05-14 16:00] VITALS: BP 156/75; PULSE 72; RESP 16; TEMP 99; O2SAT 100
[2023-05-14 16:16] LABS: BASOPHILS % 0.6 % (0.0-2.0); EOSINOPHILS % 4.1 % (0.0-5.0); HEMATOCRIT. 34.3 % (36.0-48.0); HEMOGLOBIN. 11.7 g/dL (12.0-16.0); LYMPHOCYTES % 33.5 % (20.0-50.0); MEAN CORPUSCULAR HEMOGLOBIN 30.6 pg (28.0-32.0); MEAN CORPUSCULAR HGB CONC 34.1 g/dL (31.0-37.0); MEAN CORPUSCULAR VOLUME 89.6 fL (81.0-99.0); MEAN PLATELET VOLUME 8.1 fl (7.4-10.4); MONOCYTES % 7.5 % (2.0-8.0); NEUTROPHILS % 54.3 % (40.0-76.0); PLATELET 333 x1000/uL (130-400); RED BLOOD CELL COUNT 3.82 mill/uL (4.2-5.4); RED CELL DISTRIBUTION WIDTH 13.2 % (11.6-14.6); WHITE BLOOD COUNT 5.1 x1000/uL (4.5-11.0)
[2023-05-14 16:33] LABS: ALANINE AMINOTRANSFERASE 344 IU/L (10-49); ALBUMIN 4.5 g/dL (3.2-4.8); ASPARTATE AMINOTRANSFERASE 245 IU/L (<34); BILIRUBIN TOTAL 0.7 mg/dL (0.1-1.0); CALCIUM 8.8 mg/dL (8.7-10.4); CARBON DIOXIDE 23 mEq/L (21-32); CHLORIDE 103 mEq/L (98-107); CREATININE 1.2 mg/dL (0.6-1.0); GLUCOSE 352 mg/dL (70-105); POTASSIUM 3.8 mEq/L (3.5-5.1); PROTEIN TOTAL 7.3 g/dL (6.0-8.3); SODIUM 135 mEq/L (136-145); TROPONIN I HIGH SENSITIVITY 20 ng/L (3.0-34); UREA NITROGEN BLOOD 15 mg/dL (9-23)
[2023-05-14] MEDS ORDERED: CIPR500T5 MT (17:39)
[2023-05-14] MEDS ORDERED: LACT1TAB14 MT (17:39)
[2023-05-14] MEDS ORDERED: ONDA4TAB11 PO (17:39)
== END 2023-05-14 18:10 | disposition home or self-care (01) ==
LOC: ER 15:32
DX: R19.7 Diarrhea, unspecified (principal); R74.01 Elevation of levels of liver transaminase levels; E78.00 Pure hypercholesterolemia, unspecified; E11.9 Type 2 diabetes mellitus without complications; I10 Essential (primary) hypertension; Z88.5 Allergy status to narcotic agent; Z88.6 Allergy status to analgesic agent; Z79.899 Other long term (current) drug therapy; Z79.82 Long term (current) use of aspirin
CPT/HCPCS: 36415; 80053; 84484; 85025; 93005; 99284